=== PATIENT | female | born 2000 | race Two or more races ===

== ENCOUNTER 2022-08-17 19:37 | Emergency (ER) | payer OTHER ==
[~2022-08-17] VITALS: Ht 165.1 cm; Wt 62.0 kg
[2022-08-17 20:55] VITALS: BP 141/87
[2022-08-18] MEDS ORDERED: CIP03OS RIGHTEYE (01:40)
== END 2022-08-18 03:22 | disposition left against medical advice (07) ==
LOC: ER 19:37
DX: S00.211A Abrasion of right eyelid and periocular area, initial encounter (principal); W55.01XA Bitten by cat, initial encounter; Y93.89 Activity, other specified; Y92.89 Other specified places as the place of occurrence of the external cause; Y99.8 Other external cause status